=== PATIENT | female | born 1970 | race Caucasian/White ===

== ENCOUNTER 2021-03-08 12:13 | Emergency (ER) | payer BC, SELFPAY ==
[2021-03-08 12:15] VITALS: BP 135/85; PULSE 90; RESP 20; TEMP 36.8; O2SAT 97; BMI 45.4
--- NOTE | 2021-03-08 12:15 | XR_ITS ---
PROCEDURE INFORMATION: Exam: XR Left Wrist Exam date and time: 03/08/2021 12:15 PM Age: 50 years old Clinical indication: Injury or trauma; Blunt trauma (contusions or hematomas); Left; Patient HX: Fall, pain to lateral (thumb side) of wrist TECHNIQUE: Imaging protocol: XR Left wrist. Views: 3 or more views. COMPARISON: No relevant prior studies available. FINDINGS: Bones/joints: There is no evidence of acute fracture.There is no evidence of malalignment or dislocation. Soft tissues: Normal. IMPRESSION: There is no evidence of acute fracture.There is no evidence of malalignment or dislocation.
--- NOTE | 2021-03-08 12:35 | HMH.EDUTC ---
[facility] [place] Disposition Clinical Impression: Left wrist sprain Qualifiers: Encounter type: initial encounter Qualified Code(s): S63.502A - Unspecified sprain of left wrist, initial encounter Disposition: Home, Self-Care Condition on Discharge: Good Instructions: How To Perform RICE (Rest, Ice, Compress, Elevate) Additional Instructions: *RICE, Rest the extremity, Ice 15-20 minutes 3-4 times daily, Compress- wear the alexei wrap as discussed as much as possible to help reduce swelling and pain, Elevate the extremity when at rest *Alexei wrap is for support and help control swelling, use it except in the shower. Be sure that is not to tight but not to loose either *Elevate when resting *Ibuprofen every 6-8 hours as needed for pain an inflammation. If need something more can take Tylenol in between doses of Ibuprofen to help Immediately follow up with your family doctor for new or worsening of symptoms, or no noticeable improvement over the next 3-5 days Referrals: Azeb Rendon [Primary Care Provider] - As needed Time of Disposition: 13:10 Medical Decision Making - Jean Paul Inquiry Pt receiving controlled substance: No Jean Paul was queried for this patient: No Vital Signs: 03/08/21 12:15 Temperature 98.2 F Temperature Source Oral Pulse Rate [Right Brachial] 90 Respiratory Rate 20 Blood Pressure [Right Arm] 135/85 Blood Pressure Mean [Right Arm] 101 Blood Pressure Source [Right Arm] Automatic Cuff Blood Pressure Position [Right Arm] Sitting 02 Sat by Pulse Oximetry 97 Oxygen Delivery Method Room Air - Radiology Data #1 Image(s): Wrist Image Reviewed: Yes I reviewed the patient's radiology image, Yes I have reviewed radiologist's interpretation Preliminary Findings: No Fracture Seen [facility] [place] HPI - General Stated complaint: ao 03/08/21 @ 0800 poss broken Lt wrist Time Seen by Provider: 03/08/21 12:35 Mode of Arrival: Ambulatory Source of Information: Patient Limitations: No Limitations Description of Symptoms (Recalled from Triage Doc. by RN): PATIENT C/O INJURY TO LEFT WRIST AFTER HER DOG TRIPPED HER THIS MORNING HEENT Symptoms (Recalled from RN notes): No Resp Symptoms (Recalled from RN notes): No Skin Symptoms (Recalled from RN notes): No MS Symptoms (Recalled from RN notes): Yes Functional Status (Recalled from RN notes): WNL - History of Present Illness Provider Complaint: Patient states that this morning around 8am she and her dog got tangled up and she tripped and landed on her left wrist States that ever since she has been having pain in her left wrist and hurts when she tries to bend it or moves her index finger and thumb so she came in to get it checked Denies any other injurys except for abrasions on her left leg - Related Data Home Medications Medication Instructions Recorded Confirmed Cyclobenzaprine HCl [Flexeril 10mg 10 mg PO DAILYP PRN 03/08/21 03/08/21 tablet] Diclofenac Sodium [Diclofenac 75mg 75 mg PO BID 03/08/21 03/08/21 Tab] Gabapentin [Neurontin 600mg 600 mg PO DAILY 03/08/21 03/08/21 tablet] Omeprazole [Omeprazole 40mg 40 mg PO DAILY 03/08/21 03/08/21 Capsule] Triamterene/Hydrochlorothiazid 1 each PO DAILY 03/08/21 03/08/21 [Triamterene-Hctz 37.5-25 mg Tb] Allergies Allergy/AdvReac Type Severity Reaction Status Date / Time No Known Allergies Allergy Verified 03/08/21 12:25 - Worker's Comp Is this a Worker's Comp case?: No [facility] History - Hepatitis A Screen Drug use history?: No High risk sexual behaviors?: No History of sexually transmitted infection?: No Currently employed?: No Childcare worker?: No Do you have indoor plumbing?: Yes Do you have electricity?: Yes Attestation statement:: This patient has been screened for Hepatitis A risk factors. I have reviewed the patient's past medical history: Yes Medical History: Reports:: Diabetes Mellitus Type 2 Laterality Cases: Bilateral: Carpal Tunnel Release, Total Knee Replacement - Social H
[2021-03-08 13:13] VITALS: BP 135/85; PULSE 90; RESP 20; TEMP 36.8; O2SAT 97
== END 2021-03-08 13:21 | disposition home or self-care (01) ==
PROVIDERS: Emergency Provider Nurse Practitioner; PCP Physician Assistant
DX: S63.502A Unspecified sprain of left wrist, initial encounter; W01.0XXA Fall on same level from slipping, tripping and stumbling without subsequent striking against object, initial encounter; Y92.89 Other specified places as the place of occurrence of the external cause
CPT/HCPCS: 29125; 73110; 99202; G0463

== ENCOUNTER 2021-07-16 16:45 | Emergency (ER) | payer BC, SELFPAY ==
[2021-07-16 18:13] VITALS: BP 128/71; PULSE 71; RESP 19; TEMP 36.8; O2SAT 98; BMI 42.9
--- NOTE | 2021-07-16 18:17 | HMH.EDUTC ---
[facility] [place] Disposition Clinical Impression: Encounter for laboratory testing for COVID-19 virus, Viral syndrome Disposition: Home, Self-Care Condition on Discharge: Good Instructions: DI for COVID-19 (Suspected or Confirmed ), Preventing the Spread of Coronavirus Discharge Instructions Additional Instructions: *Monitor Temp, Over the counter Motrin or Tylenol as directed/as needed Tylenol every 4 hours and Motrin every 6 hours (as long as your family doctor has told you that you can take it) for fever or pain. and straight to ER if unable to lower temp less than 101.0 after medication given *Warm salt water gargles may help to soothe the throat *Throat Lozenges *Warm fluids like tea with honey may help to soothe the throat *Sleep elevated *Humidifier/Vaporizer Follow up IMMEDIATELY for new or worsening symptoms or no Noticeable improvement over the next 48-72 hours. 911 for difficulty breathing or swallowing You were tested for today for COVID19 your test result should be back in the next 24-48 hours, you was given instructions on how to [facility] for [facility] results. If you do not have internet or access you may call the [facility]. You was given a handout with instructions for Self Quarantine and Self isolation for while you wait on test results and what to do if they are positive If you are positive the Health Dept will be contacting you also Make sure to take your Vitamins Vit. C Vit D and Zinc if you can take them Referrals: Azeb Rendon [Primary Care Provider] - As needed Forms: Work/School Release Time of Disposition: 18:20 Medical Decision Making - Jean Paul Inquiry Pt receiving controlled substance: No Jean Paul was queried for this patient: No Vital Signs: 07/16/21 18:13 Temperature 98.3 F Temperature Source Oral Pulse Rate [Right] 71 Respiratory Rate 19 Blood Pressure [Right Arm] 128/71 Blood Pressure Mean [Right Arm] 90 02 Sat by Pulse Oximetry 98 Orders (Tests/Meds): ORDERS Category Date Time Status Covid-19 Nasal PCR ([facility]) Routine Lab 07/16/21 18:09 Ordered [facility] [place] HPI - General Stated complaint: fever,body aches,chills,GANDARA Time Seen by Provider: 07/16/21 18:17 Description of Symptoms (Recalled from Triage Doc. by RN): CHILLS, ACHEY, HEADACHE X2 DAYS HEENT Symptoms (Recalled from RN notes): No Resp Symptoms (Recalled from RN notes): No Skin Symptoms (Recalled from RN notes): No MS Symptoms (Recalled from RN notes): No Functional Status (Recalled from RN notes): WNL - History of Present Illness Provider Complaint: Patient states that she recently traveled to [place] and she was around people there States that for the last couple of days she has been having body aches, chills and headache and was worried that she may have contracted COVID so she came in wanting to get tested - Related Data Home Medications Medication Instructions Recorded Confirmed Cyclobenzaprine HCl [Flexeril 10mg 10 mg PO DAILYP PRN 03/08/21 03/08/21 tablet] Diclofenac Sodium [Diclofenac 75mg 75 mg PO BID 03/08/21 03/08/21 Tab] Gabapentin [Neurontin 600mg 600 mg PO DAILY 03/08/21 03/08/21 tablet] Omeprazole [Omeprazole 40mg 40 mg PO DAILY 03/08/21 03/08/21 Capsule] Triamterene/Hydrochlorothiazid 1 each PO DAILY 03/08/21 03/08/21 [Triamterene-Hctz 37.5-25 mg Tb] Allergies Allergy/AdvReac Type Severity Reaction Status Date / Time No Known Allergies Allergy Verified 07/16/21 18:16 - Worker's Comp Is this a Worker's Comp case?: No [facility] History - Hepatitis A Screen Drug use history?: No High risk sexual behaviors?: No History of sexually transmitted infection?: No Currently employed?: No Childcare worker?: No Do you have indoor plumbing?: Yes Do you have electricity?: Yes Attestation statement:: This patient has been screened for Hepatitis A risk factors. I have reviewed the patient's past medical history: Yes Medical History: Reports:: Diabetes Neetu
[2021-07-16 18:28] VITALS: BP 128/71; PULSE 71; RESP 19; TEMP 36.8; O2SAT 98
== END 2021-07-16 18:30 | disposition home or self-care (01) ==
PROVIDERS: Emergency Provider Nurse Practitioner; PCP Physician Assistant
DX: Z20.822 Contact with and (suspected) exposure to COVID-19 (principal)
CPT/HCPCS: 99202; G0463; U0003

== ENCOUNTER → 2021-12-13 11:18 | Outpatient (CLI) | payer BC, SELFPAY | PROVIDERS: Visit Provider Nurse Practitioner | DX: Z20.822 Contact with and (suspected) exposure to COVID-19 (principal) | CPT/HCPCS: C9803; U0003; U0005 ==

== ENCOUNTER 2023-11-29 13:48 | Outpatient (CLI) | payer BC, SELFPAY ==
[2023-11-29 14:48] LABS: Basophils # 0.1 K/mm3 (0-0.2); Basophils % 0.7 % (0.1-2.0); Eosinophils # 0.2 K/mm3 (0.0-0.4); Hematocrit 33.4 % (37.0-47.0); Hemoglobin 11.1 g/dL (12.2-16.2); Lymphocytes # 2.4 K/mm3 (0.7-4.5); Lymphocytes % 26.8 % (10-50); Mean Corpuscular HGB Conc 33.2 g/dL (31.8-35.4); Mean Corpuscular Hemoglobin 27.8 pg (27.0-31.2); Mean Corpuscular Volume 83.8 fl (81-99); Mean Platelet Volume 8.1 fl (7.4-10.4); Monocytes # 0.9 K/mm3 (0.1-1.0); Monocytes % 10.2 % (1.7-9.3); Neutrophils # 5.5 K/mm3 (1.8-7.8); Neutrophils % 60.3 % (37.0-80.0); Platelet Count 567 K/mm3 (142-424); Red Blood Count 3.99 M/mm3 (4.20-5.40); Red Cell Distribution Width 14.5 % (11.5-17.5); White Blood Count 9.1 K/mm3 (4.8-10.8)
[2023-11-29 15:11] LABS: Alanine Aminotransferase 21 U/L (12-78); Albumin Level 3.6 g/dl (3.5-5.0); Alkaline Phosphatase 75 U/L (38-126); Anion Gap 12.9 mEq/L (5-15); Aspartate Amino Transferase 47 U/L (14-36); Bilirubin,Total 0.3 mg/dl (0.2-1.3); Blood Urea Nitrogen 15 mg/dl (7-17); Calcium 8.9 mg/dl (8.4-10.2); Carbon Dioxide 29 mmol/L (22.0-30.0); Chloride 99 mmol/L (98-107); Estimated Glomerular Filt Rate 88 ml/min (>60); GFR (African American) 107 ML/MIN (>60); Globulin 3.7 g/dL (1.3-3.2); Glucose 95 mg/dl (74-100); Potassium 4.9 mmoL/L (3.5-5.1); Sodium 136 mmol/L (136-145); Total Protein,Serum 7.3 g/dl (6.3-8.2)
[2023-11-29 15:18] LABS: C-Reactive Protein 44.9 mg/L (0-4)
[2023-11-29 15:20] LABS: Erythrocyte Sedimentation Rate 127 mm/hr (0-30)
== END 2023-11-29 23:59 ==
PROVIDERS: PCP Internal Medicine Infectious Disease; Visit Provider Internal Medicine Infectious Disease
DX: M25.561 Pain in right knee (principal)
CPT/HCPCS: 80053; 85025; 85651; 86140